=== PATIENT | female | born 1925 | race Caucasian/White ===

== ENCOUNTER 2016-05-04 15:59 | Inpatient (IN) | payer OTHER, MEDICARE ==
[~2016-05-04] VITALS: Ht 162.6 cm; Wt 65.0 kg
[~2016-05-04 15:59] MED LIST: ASPIRIN81 M2 PO; HYDROCHLOROTHIA25 MG PO; HYDROCODON-ACE1 EAC7 PO; LIPITOR80 MG PO; LISINOPRIL10 MG PO; METOPROLOL PO; PLAVIX75 MG PO
[2016-05-04 16:42] LABS: POINT-OF-CARE METER ID UU14100415
[2016-05-04 17:42] LABS: EOSINOPHIL (%) 0 % (0-5); HEMATOCRIT 41.1 % (36.0-46.0); IMMATURE GRANULOCYTE (%) 0.6 % (0.0-0.7); IMMATURE GRANULOCYTE COUNT 0.1 K/uL; INSTRUMENT ABS NEUTROPHIL CT 11.6 K/uL; LYMPHOCYTE COUNT 0.5 K/uL (1.0-2.8); MCH 34.9 PG (29.0-34.0); MCHC 37.2 G/DL (30.0-36.0); MCV 93.6 FL (83-99); MEAN PLAT.VOLUME 11.4 uM^3 (9.5-12.4); MONOCYTE (%) 3.8 % (3-12); MONOCYTE COUNT 0.5 K/uL (0-0.8); NEUTROPHIL (%) 91.4 % (45-76); NEUTROPHIL COUNT 11.6 K/uL (1.8-6.4); PLATELET COUNT 187 K/uL (156-360); RBC DIS.WIDTH-CV 13.2 % (11.8-14.6); RBC DIS.WIDTH-SD 41.9 % (39-53); RED BLOOD COUNT 4.39 M/uL (3.80-5.20); WHITE BLOOD COUNT 12.7 K/uL (4.1-10.2)
[2016-05-04 17:51] LABS: CHLORIDE 100 mEq/L (99-109); POTASSIUM 3.9 mEq/L (3.7-5.4); SODIUM 137 mEq/L (136-147)
[2016-05-04 17:53] LABS: GLUCOSE 179 mg/dL (70-99)
[2016-05-04 17:54] LABS: ANION GAP 15 MEQ/L (2-14)
[2016-05-04 17:55] LABS: TOTAL BILIRUBIN 1.1 mg/dL (0.0-1.0)
[2016-05-04 17:56] LABS: ALKALINE PHOSPHATASE 132 IU/L (3-129)
[2016-05-04 17:57] LABS: GFR ESTIMATE (CALCULATED) 50 mL/min/
[2016-05-04 17:58] LABS: UREA NITROGEN (BUN) 18 mg/dL (9-23)
[2016-05-04 18:00] LABS: CREATINE KINASE 185 IU/L (1-294); TOTAL CK 185 IU/L (1-294)
[2016-05-04 18:03] LABS: TROP-I INTERPRETATION NEGATIVE; TROPONIN-I 0.02 ng/mL (0.0-0.30)
[2016-05-04 18:05] LABS: CK-MB 6.1 ng/mL (0.0-4.9)
[2016-05-04] MEDS ORDERED: METOPROLOL TART50 MG PO (19:37)
[2016-05-04] MEDS ORDERED: XARELTO15 MG PO (19:37)
[2016-05-04 22:12] VITALS: BP 149/82
[2016-05-04 23:30] LABS: POINT-OF-CARE METER ID UU13113698
[2016-05-05 03:39] VITALS: BP 145/70
[2016-05-05 06:54] LABS: POINT-OF-CARE METER ID UU14174216
[2016-05-05 07:31] LABS: ANION GAP 10 MEQ/L (2-14); CHLORIDE 107 MEQ/L (99-109); GFR ESTIMATE (CALCULATED) 45 mL/min/; GLUCOSE 127 mg/dL (70-99); SAMPLE HEMOLYSIS CHECK 0; SAMPLE ICTERIC CHECK 0; SAMPLE LIPEMIA CHECK 0; SODIUM 140 MEQ/L (136-147); UREA NITROGEN (BUN) 21 mg/dL (9-23)
[2016-05-05 08:25] VITALS: BP 131/60
[2016-05-05 09:52] LABS: HEMATOCRIT 37.2 % (36.0-46.0); MCH 30.3 PG (29.0-34.0); MCHC 32.3 G/DL (30.0-36.0); MCV 93.9 FL (83-99); MEAN PLAT.VOLUME 13.3 uM^3 (9.5-12.4); PLATELET COUNT 140 K/uL (156-360); RBC DIS.WIDTH-CV 13.2 % (11.8-14.6); RBC DIS.WIDTH-SD 45.3 % (39-53); RED BLOOD COUNT 3.96 M/uL (3.80-5.20); WHITE BLOOD COUNT 11.6 K/uL (4.1-10.2)
[2016-05-05 11:10] VITALS: BP 124/77
[2016-05-05 11:26] LABS: POINT-OF-CARE METER ID UU14174216; POINT-OF-CARE USER ID ENVKC36
[2016-05-05 15:31] VITALS: BP 140/68
[2016-05-05 18:43] LABS: POINT-OF-CARE METER ID UU14174216
[2016-05-05 19:01] VITALS: BP 134/76
[2016-05-05 23:20] VITALS: BP 139/70
[2016-05-06 02:45] VITALS: BP 132/70
[2016-05-06 07:06] LABS: EOSINOPHIL (%) 0.3 % (0-5); IMMATURE GRANULOCYTE (%) 0.4 % (0.0-0.7); INSTRUMENT ABS NEUTROPHIL CT 7.8 K/uL; LYMPHOCYTE COUNT 0.8 K/uL (1.0-2.8); MCH 33.2 PG (29.0-34.0); MCHC 35.4 G/DL (30.0-36.0); MCV 93.6 FL (83-99); MEAN PLAT.VOLUME 11.8 uM^3 (9.5-12.4); MONOCYTE (%) 8.3 % (3-12); MONOCYTE COUNT 0.8 K/uL (0-0.8); NEUTROPHIL (%) 82.6 % (45-76); NEUTROPHIL COUNT 7.8 K/uL (1.8-6.4); PLATELET COUNT 130 K/uL (156-360); RBC DIS.WIDTH-CV 12.8 % (11.8-14.6); RBC DIS.WIDTH-SD 42.1 % (39-53); RED BLOOD COUNT 3.74 M/uL (3.80-5.20); WHITE BLOOD COUNT 9.5 K/uL (4.1-10.2)
[2016-05-06 07:29] LABS: ANION GAP 8 MEQ/L (2-14); CHLORIDE 106 MEQ/L (99-109); GFR ESTIMATE (CALCULATED) > 59 mL/min/; GLUCOSE 118 mg/dL (70-99); POTASSIUM 3.3 MEQ/L (3.7-5.4); SAMPLE HEMOLYSIS CHECK 0; SAMPLE ICTERIC CHECK 0; SAMPLE LIPEMIA CHECK 0; SODIUM 139 MEQ/L (136-147); UREA NITROGEN (BUN) 16 mg/dL (9-23)
[2016-05-06 10:15] VITALS: BP 140/71
[2016-05-06 12:02] VITALS: BP 148/78
[2016-05-06 15:14] VITALS: BP 147/79
[2016-05-06 20:08] VITALS: BP 139/70
[2016-05-06 23:03] VITALS: BP 138/72
[2016-05-07 00:06] LABS: POINT-OF-CARE METER ID UU13113698
[2016-05-07 03:14] VITALS: BP 138/70
[2016-05-07 06:39] LABS: EOSINOPHIL (%) 0.7 % (0-5); EOSINOPHIL COUNT 0.1 K/uL (0-0.3); HEMATOCRIT 36.8 % (36.0-46.0); IMMATURE GRANULOCYTE (%) 0.4 % (0.0-0.7); INSTRUMENT ABS NEUTROPHIL CT 7.6 K/uL; LYMPHOCYTE COUNT 0.7 K/uL (1.0-2.8); MCH 34.7 PG (29.0-34.0); MCHC 37.5 G/DL (30.0-36.0); MCV 92.5 FL (83-99); MONOCYTE (%) 6.9 % (3-12); MONOCYTE COUNT 0.6 K/uL (0-0.8); NEUTROPHIL (%) 83.6 % (45-76); NEUTROPHIL COUNT 7.6 K/uL (1.8-6.4); PLATELET COUNT 135 K/uL (156-360); RBC DIS.WIDTH-CV 12.4 % (11.8-14.6); RBC DIS.WIDTH-SD 41.1 % (39-53); RED BLOOD COUNT 3.98 M/uL (3.80-5.20); WHITE BLOOD COUNT 9.1 K/uL (4.1-10.2)
[2016-05-07 07:10] LABS: ANION GAP 8 MEQ/L (2-14); CHLORIDE 101 MEQ/L (99-109); GFR ESTIMATE (CALCULATED) > 59 mL/min/; GLUCOSE 93 mg/dL (70-99); POTASSIUM 3.1 MEQ/L (3.7-5.4); SAMPLE HEMOLYSIS CHECK 0; SAMPLE ICTERIC CHECK 0; SAMPLE LIPEMIA CHECK 0; SODIUM 135 MEQ/L (136-147); UREA NITROGEN (BUN) 15 mg/dL (9-23)
[2016-05-07 08:50] VITALS: BP 179/97
[2016-05-07 11:44] VITALS: BP 140/85
[2016-05-07 12:09] LABS: POINT-OF-CARE METER ID UU13113698
[2016-05-07 17:56] LABS: POINT-OF-CARE METER ID UU14188625
[2016-05-07 19:32] VITALS: BP 123/65
[2016-05-07 23:18] VITALS: BP 146/96
[2016-05-08 03:12] VITALS: BP 158/97
[2016-05-08 05:30] VITALS: BP 146/80
[2016-05-08 08:59] VITALS: BP 125/60
[2016-05-08 09:49] LABS: ANION GAP 7 MEQ/L (2-14); CHLORIDE 105 MEQ/L (99-109); GFR ESTIMATE (CALCULATED) > 59 mL/min/; GLUCOSE 121 mg/dL (70-99); POTASSIUM 3.5 MEQ/L (3.7-5.4); SAMPLE HEMOLYSIS CHECK 0; SAMPLE ICTERIC CHECK 0; SAMPLE LIPEMIA CHECK 0; SODIUM 140 MEQ/L (136-147); UREA NITROGEN (BUN) 16 mg/dL (9-23)
[2016-05-08 16:26] LABS: POINT-OF-CARE METER ID UU14188625
[2016-05-08 16:59] VITALS: BP 163/66
[2016-05-08 20:00] VITALS: BP 128/100
[2016-05-08 21:30] VITALS: BP 160/94
[2016-05-09] VITALS (7 sets, daily range): BP systolic 147–164; BP diastolic 71–102
[2016-05-09 08:03] LABS: POINT-OF-CARE METER ID UU14174225; POINT-OF-CARE USER ID 612031313
[2016-05-09 09:05] LABS: HEMATOCRIT 40.9 % (36.0-46.0); MCHC 34.7 G/DL (30.0-36.0); MCV 89.3 FL (83-99); MEAN PLAT.VOLUME 11.5 uM^3 (9.5-12.4); PLATELET COUNT 172 K/uL (156-360); RBC DIS.WIDTH-CV 12.5 % (11.8-14.6); RED BLOOD COUNT 4.58 M/uL (3.80-5.20); WHITE BLOOD COUNT 8.1 K/uL (4.1-10.2)
[2016-05-09 09:42] LABS: ANION GAP 9 MEQ/L (2-14); CHLORIDE 101 MEQ/L (99-109); GFR ESTIMATE (CALCULATED) > 59 mL/min/; GLUCOSE 114 mg/dL (70-99); POTASSIUM 2.9 MEQ/L (3.7-5.4); SAMPLE HEMOLYSIS CHECK 0; SAMPLE ICTERIC CHECK 0; SAMPLE LIPEMIA CHECK 0; SODIUM 138 MEQ/L (136-147); UREA NITROGEN (BUN) 14 mg/dL (9-23)
[2016-05-09] MEDS ORDERED: POTASSIUM20 MEQ/11 PO (11:40)
[2016-05-09 12:51] LABS: CARBON DIOXIDE (BICARBONATE) 33.2 MEQ/L (20-31)
[2016-05-10 04:12] VITALS: BP 150/93
[2016-05-10 05:14] VITALS: BP 127/77
[2016-05-10 08:31] VITALS: BP 123/69
[2016-05-10 11:51] VITALS: BP 129/69
== END 2016-05-10 16:15 | DRG 64 ==
LOC: EME 15:59 → EDOF 20:09 → 4EAST 20:09 → 5SOUTH 05-07 16:41
PROVIDERS: Emergency Medicine; Hospitalist; Internal Medicine; Student in an Organized Health Care Education/Training Program
DX: I61.9 Nontraumatic intracerebral hemorrhage, unspecified (principal); J69.0 Pneumonitis due to inhalation of food and vomit; A41.9 Sepsis, unspecified organism; G93.6 Cerebral edema; E87.2 Acidosis; I60.9 Nontraumatic subarachnoid hemorrhage, unspecified; I10 Essential (primary) hypertension; E78.5 Hyperlipidemia, unspecified; I73.9 Peripheral vascular disease, unspecified; Z86.73 Personal history of transient ischemic attack (TIA), and cerebral infarction without residual deficits; I48.91 Unspecified atrial fibrillation; E44.1 Mild protein-calorie malnutrition; Z68.24 Body mass index [BMI] 24.0-24.9, adult; Z79.01 Long term (current) use of anticoagulants; E87.6 Hypokalemia; G81.94 Hemiplegia, unspecified affecting left nondominant side; N39.0 Urinary tract infection, site not specified; R41.82 Altered mental status, unspecified; Z66 Do not resuscitate; Z51.5 Encounter for palliative care
CPT/HCPCS: 70450; 71010; 80048; 80053; 81003; 82550; 82553; 82803; 82948; 83605; 83735; 84484; 85025; 85027; 87040; 92526 GN; 92610 GN; 93005; 99281; 99285; J0360; J0696; J2405; J2543; J3480; J7030; J7050